=== PATIENT | male | born 1950 | race Caucasian/White ===

== ENCOUNTER 2023-12-23 05:51 | Day surgery (SDC) | payer MEDICARE ==
[2023-12-15 11:42] LABS: BASOPHILS # (AUTO) 0.03 K/uL (0.00-0.20); BASOPHILS % (AUTO) 0.5 % (0.0-5.0); EOSINOPHILS # (AUTO) 0.18 K/uL (0.00-0.70); EOSINOPHILS % (AUTO) 3.1 % (0.0-8.0); HEMATOCRIT 41.2 % (42-54); IMMATURE GRANULOCYTE ABSOLUTE 0.03 K/uL (0-1); LYMPHOCYTES # (AUTO) 1.7 K/uL (1.0-4.8); LYMPHOCYTES % (AUTO) 28.7 % (21.0-51.0); MEAN CORPUSCULAR HEMOGLOBIN 28.9 pg (27.0-33.0); MEAN CORPUSCULAR VOLUME 87.5 fL (79-99); MONOCYTES # (AUTO) 0.4 K/uL (0.1-1.0); MONOCYTES % (AUTO) 6.3 % (3.0-13.0); NEUTROPHILS # (AUTO) 3.6 K/uL (1.8-7.7); NEUTROPHILS % (AUTO) 60.9 % (40.0-77.0); PLATELET COUNT (AUTO) 180 K/uL (130-400); RED BLOOD CELL COUNT(AUTO) 4.71 MIL/uL (4.50-6.20); RED CELL DISTRIBUTION WIDTH 13.6 % (11.0-15.5); WHITE BLOOD COUNT (AUTO) 5.9 K/uL (4.8-10.8)
[2023-12-15 11:49] VITALS: BP 114/60; PULSE 50; RESP 17
[2023-12-15 11:54] LABS: INR 0.94 (0.85-1.15); PROTHROMBIN TIME 11.1 SEC (9.6-11.6)
[2023-12-15 11:55] LABS: CREATININE 1.1 mg/dL (0.5-1.3); POTASSIUM 4.2 mmol/L (3.5-5.1)
[2023-12-15 11:56] LABS: PARTIAL THROMBOPLASTIN TIME 26.6 SEC (26.3-35.5)
[2023-12-15 12:08] LABS: APPEARANCE,URINE CLEAR (CLEAR); BILIRUBIN,URINE NEGATIVE (NEGATIVE); COLOR,URINE LIGHT-YELLOW (YELLOW); GLUCOSE, URINE (UA) TRACE mg/dL (NEGATIVE); KETONES,URINE NEGATIVE (NEGATIVE); LEUKOCYTE ESTERASE ,URINE NEGATIVE Leu/uL (NEGATIVE); NITRATE,URINE NEGATIVE (NEGATIVE); OCCULT BLOOD,URINE NEGATIVE (NEGATIVE); PROTEIN,URINE NEGATIVE (NEGATIVE); UROBILINOGEN,URINE 0.2 mg/dL (0.2-1.0)
[2023-12-15 12:14] LABS: ADD UA MICROSCOPIC YES
[2023-12-15 12:17] LABS: B-TYPE NATRIURETIC PEPTIDE 30 pg/mL (0-100)
[2023-12-15 12:19] LABS: MUCUS,URINE RARE LPF (None Seen); RBC,URINE 0-1 /HPF (0-1); SQUAMOUS EPITHELIAL CELL,UR RARE /HPF (0-2)
[2023-12-23] VITALS (9 sets, daily range): BP systolic 108–128; BP diastolic 64–74; PULSE 51–66; RESP 12–17
[~2023-12-23] VITALS: Ht 188 cm; Wt 95.3 kg
[~2023-12-23 05:51] MED LIST: AEC81 PO; ATEN100T PO; ISOS30TA92 PO; NITR0.4T50 SL; TAMS-1 PO
[2023-12-23] MEDS ORDERED: MIDAZOLAM HCL 1 MG/ML 2ML VIAL ONE ×2 (07:20→08:46)
[2023-12-23] MEDS ORDERED: VERAPAMIL HCL 2.5 MG/ML VIAL ONE (07:20)
[2023-12-23] MEDS ORDERED: IOHEXOL-350 50ML VIAL IV ONE (07:20)
[2023-12-23] MEDS ORDERED: LIDOCAINE HCL 400MG/20ML VIAL ONE (07:20)
[2023-12-23] MEDS ORDERED: FENTANYL CITRATE PF 50 MCG/1 ML 2ML VIAL ONE (07:20)
[2023-12-23] MEDS ORDERED: IOHEXOL 350 MG/ML 100ML INFUS..BTL IV ONE (07:20)
[2023-12-23] MEDS ORDERED: HEPARIN 10,000 UNIT/10ML (1,000 UNIT/ML) VIAL ONE ×2 (07:21→08:20)
[2023-12-23] MEDS ORDERED: NITROGLYCERIN 50MG VIAL ONE (07:21)
[2023-12-23] MEDS ORDERED: CLOPIDOGREL 300MG TAB ONE (09:08)
[2023-12-23] MEDS ORDERED: 0.9%NACL 1000ML 1,000 ML IV SCH (09:30)
[2023-12-23] MEDS ORDERED: CLOP-31 PO (11:32)
== END 2023-12-23 13:05 | disposition home or self-care (01) ==
LOC: DAH 05:51
PROVIDERS: ATTEND Internal Medicine Interventional Cardiology
DX: I25.119 Atherosclerotic heart disease of native coronary artery with unspecified angina pectoris (principal); E78.2 Mixed hyperlipidemia; E66.3 Overweight; G60.8 Other hereditary and idiopathic neuropathies; I10 Essential (primary) hypertension; R53.82 Chronic fatigue, unspecified; M79.606 Pain in leg, unspecified; Z79.899 Other long term (current) drug therapy; Z79.01 Long term (current) use of anticoagulants; Z95.5 Presence of coronary angioplasty implant and graft; Z68.26 Body mass index [BMI] 26.0-26.9, adult
CPT/HCPCS: 80048; 83880; 85025; 85610; 85730; 81001; 36415; 71045; 93005; 92920; 93458; 92978; 85347; C1887; C1894 ×3; C1769 ×2; C1725; C1760; C1753; A4663; J3010; J3490 ×3; J1644 ×2; J2250 ×2; Q9967 ×2; A4215; A4222; A4221; A4216; A4606; Q9965 ×2; A4223 ×3; 99156; 99157